=== PATIENT | female | born 1995 | race Caucasian/White ===

== ENCOUNTER 2016-10-16 21:21 | Emergency (ER) | payer OTHER ==
[~2016-10-16] VITALS: Ht 170.2 cm; Wt 85.0 kg
[~2016-10-16 21:21] MED LIST: BCPILLS PO; EPP3/2 IM; MULT-884 PO
[2016-10-16 21:24] VITALS: Ht 170.2 cm; Wt 85.0 kg
[2016-10-16] MEDS ORDERED: ALBUT/IPRATROP 3MG/0.5MG NEB 3 ML VIAL INH STA (22:17)
[2016-10-16 22:46] LABS: BASO % 0.1 %; BASO ABS # 0.01 K/uL (0-0.2); COMPLETE YES; HEMATOCRIT 37.9 % (37-47); IG% 0.1 %; LYMPH % 16.2 %; LYMPH ABS # 1.11 K/uL (1.2-3.4); MEAN CELL VOLUME 84.6 fL (80-100); MEAN CORPUSCULAR HEMOGLOBIN 29.7 pg (25-34); MEAN CORPUSCULAR HGB CONC 35.1 g/dl (32-36); MONO % 9.1 %; NEUT % 74.5 %; PLATELET COUNT 272 K/uL (130-400); RED BLOOD COUNT 4.48 M/uL (4.2-5.4); WHITE BLOOD COUNT 6.85 K/uL (4.8-10.8)
[2016-10-16 23:10] LABS: BUN/CREATININE RATIO 12.3 (10-20); CREATININE 1.2 mg/dl (0.60-1.20); POTASSIUM 3.5 mmol/L (3.5-5.1)
[2016-10-16 23:13] LABS: ALB/GLOB RATIO 0.9 (0.9-2)
[2016-10-16] MEDS ORDERED: SODIUM CHLORIDE 0.9% 1000ML 1,000 ML IV STA (23:51)
[2016-10-16] MEDS ORDERED: ACETAMINOPHEN 500 MG TAB PO STA (23:51)
--- NOTE | 2016-10-17 01:21 | EMERGENCY ROOM VISIT NOTE ---
History First contact with patient: 22:07 Chief Complaint: OTHER COMPLAINT Stated Complaint: CHOKING/SOB History of Present Illness The patient is a 20 year old female who presents to the Emergency Room with complaints of feeling like something is stuck in her throat. The patient states that she was seen here for a food bolus in December of last year. She refused endoscopy at that time. She has been okay since then, but states that recently she has developed a cough and headache. She was seen at [facility] for a fever and cough 2 days ago and prescribed a Z-Paul and steroid. She reports that she was diagnosed with bronchitis and also had a positive strep swab. She feels like something is stuck in her throat and has been gagging occasionally to try to bring this up. She rates her overall discomfort a 10/ 10. She does not smoke. She denies any history of blood clots. She denies any neck pain/stiffness, chest pain or abdominal pain. Review of Systems A complete 10 point review of systems was reviewed with the patient with pertinent positives and negatives as per history of present illness. All else were negative. Past Medical/Surgical History Medical Problems: (1) No pertinent past medical history Family History Patient reports no known family medical history. Social History Smoking Status: Never Smoker Housing Status: lives with roommate Occupation Status: student Current/Historical Medications Scheduled Ethynodiol Diacet & Eth Estrad (Kelnor ), 1 TAB PO DAILY Scheduled PRN Epinephrine (Epipen), 0.3 MG IM UD PRN for ALLERGIC REACTION Physical Exam Vital Signs Date Time Temp Pulse Resp B/P (MAP) Pulse Ox O2 Delivery O2 Flow Rate FiO2 10/17/16 01:30 37.2 100 18 124/68 98 10/17/16 01:05 37.2 100 18 124/68 98 Room Air 10/17/16 01:01 99 20 10/16/16 23:18 118 18 121/64 97 Room Air 10/16/16 21:24 37.6 153 24 146/82 99 Room Air Physical Exam VITALS: Vitals are noted on the nurse's note and reviewed by myself. Vital signs stable. GENERAL: This is a 20-year-old female, in no acute distress, nondiaphoretic, well-developed well-nourished. SKIN: The skin was without rashes. HEAD: Normocephalic atraumatic. EARS: External auditory canals clear, tympanic membranes pearly kendrick without erythema or effusion bilaterally. EYES: Pupils equal round and reactive to light and accommodation. Conjunctivae without injection, sclerae without icterus. NOSE: Patent, turbinates without inflammation or discharge. MOUTH: Mucous membranes moist. Tonsils are mildly enlarged and erythematous bilaterally. No exudate. NECK: Supple without nuchal rigidity. No lymphadenopathy. HEART: Regular rate and rhythm without murmurs gallops or rubs. LUNGS: Clear to auscultation bilaterally without wheezes, rales or rhonchi. ABDOMEN: Soft, nontender to palpation. NEURO: Patient was alert and oriented to person place and time. Medical Decision & Procedures ER Provider Diagnostic Interpretation: CHEST X-RAY: No acute cardiopulmonary abnormalities. SOFT TISSUE NECK: No narrowing of the airway. No foreign bodies identified. Laboratory Results 10/16/16 22:30 Red Blood Count 4.48, Mean Corpuscular Volume 84.6, Mean Corpuscular Hemoglobin 29.7, Mean Corpuscular Hemoglobin Concent 35.1, Mean Platelet Volume 9.0, Neutrophils (%) (Auto) 74.5, Lymphocytes (%) (Auto) 16.2, Monocytes (%) (Auto) 9.1, Eosinophils (%) (Auto) 0.0, Basophils (%) (Auto) 0.1, Neutrophils # (Auto) 5.10, Lymphocytes # (Auto) 1.11, Monocytes # (Auto) 0.62, Eosinophils # (Auto) 0.00, Basophils # (Auto) 0.01 10/16/16 22:30 Test 10/16/16 22:30 White Blood Count 6.85 K/uL (4.8-10.8) Red Blood Count 4.48 M/uL (4.2-5.4) Hemoglobin 13.3 g/dL (12.0-16.0) Hematocrit 37.9 % (37-47) Mean Corpuscular Volume 84.6 fL (80-100) Mean Corpuscular Hemoglobin 29.7 pg (25-34) Mean Corpuscular Hemoglobin Concent 35.1 g/dl (32-36) Platelet Count 272 K/uL (130-400) Mean Platelet Volume 9.0 fL (7.4-10.4) Neutrophils (%) (Auto) 74.5 % Lymphocytes (%) (Auto) 16.2 % Monocytes (%) (Auto) 9.1 % Eosinophils (%) (Auto) 0.0 % Basophils (%) (Auto) 0.1 % Neutrophils # (Auto) 5.10 K/uL (1.4-6.5) Lymphocytes # (Auto) 1.11 K/uL (1.2-3.4) Monocytes # (Auto) 0.62 K/uL (0.11-0.59) Eosinophils # (Auto) 0.00 K/uL (0-0.5) Basophils # (Auto) 0.01 K/uL (0-0.2) RDW Standard Deviation 37.0 fL (36.4-46.3) RDW Coefficient of Variation 12.0 % (11.5-14.5) Immature Granulocyte % (Auto) 0.1 % Immature Granulocyte # (Auto) 0.01 K/uL (0.00-0.02) D-Dimer 380 ug/L FEU (0-500) Anion Gap 11.0 mmol/L (3-11) Est Creatinine Clear Calc Drug Dose 83.1 ml/min Estimated GFR () 74.8 Estimated GFR (Non- 64.6 BUN/Creatinine Ratio 12.3 (10-20) Calcium Level 9.0 mg/dl (8.5-10.1) Total Bilirubin 0.2 mg/dl (0.2-1) Aspartate Amino Transf (AST/SGOT) 20 U/L (15-37) Alanine Aminotransferase (ALT/SGPT) 19 U/L (12-78) Alkaline Phosphatase 62 U/L (45-117) Total Protein 7.5 gm/dl (6.4-8.2) Albumin 3.6 gm/dl (3.4-5.0) Globulin 3.9 gm/dl (2.5-4.0) Albumin/Globulin Ratio 0.9 (0.9-2) Medications Administered Medications (Trade) Dose Ordered Sig/Alla Route Start Time Stop Time Status Last Admin Dose Admin Albuterol/ Ipratropium (Duoneb) 3 ml NOW STAT INH 10/16/16 22:17 10/16/16 22:19 DC 10/16/16 22:17 3 ML Sodium Chloride 1,000 ml @ 999 mls/hr Q1H1M STAT IV 10/16/16 23:51 10/17/16 00:51 DC 10/17/16 00:00 999 MLS/HR Acetaminophen (Tylenol Tab) 1,000 mg NOW STAT PO 10/16/16 23:51 10/16/16 23:52 DC 10/17/16 00:00 1,000 MG ED Course The patient was evaluated as above. Labs were drawn and IV access was obtained. Patient was medicated with a DuoNeb treatment. Patient was given 1 L normal saline solution and 1 g Tylenol. Discharge instructions were reviewed with the patient. The patient verbalized understanding of my assessment and treatment plan and was discharged home in good condition. Medical Decision Differential diagnosis includes strep pharyngitis, pneumonia, acute bronchitis, viral illness, among others. The patient is a 20-year-old female who presents today complaining of cough, sore throat and feeling like something is stuck in her throat. Labs revealed no leukocytosis, anemia or concerning electrolyte abnormalities. Chest x-ray and neck soft tissue x-rays were reviewed by myself and my attending with no acute findings. She did have a low-grade fever. Patient was given a DuoNeb treatment, Tylenol and fluids with some relief. She was initially tachycardic, but heart rate improved significantly after fluids. I do not feel that this is likely secondary to the food bolus that the patient had last year. She was instructed to continue the medications prescribed to her by [facility] and follow-up with [facility] services as needed. Based on the patient's presentation and work up, I feel the patient is stable for outpatient treatment. The patient was educated to return to the emergency department for any worsening of their current condition or new/concerning symptoms. She will follow up with [facility] services. Medication Reconcilliation Current Medication List: was personally reviewed by me Blood Pressure Screening Patient's blood pressure: Normal blood pressure Impression Primary Impression: Acute bronchitis Departure Information Dispostion Home / Self-Care Condition GOOD Referrals [facility] (PCP) Patient Instructions My [facility] Additional Instructions For pain/fever control, you can use the following [id number] medicines ( if >12 yo): - Regular strength (325mg/tab) Tylenol (acetaminophen) 2 tabs every 4-6 hours as needed. Do not exceed 12 tablets in a 24 hour period. Avoid taking more than 4 grams (4000 mg) of Tylenol per day. This includes any other sources of acetaminophen you may take on a regular basis. - Regular strength (200 mg/tab) Advil (ibuprofen) 1-2 tabs every 4-6 hours as needed. Do not exceed a dose of 3200 mg per day. Rest and drink plenty of fluids. Continue your medications as prescribed by [facility]. Follow-up with [facility] this week for further evaluation. Return here for worsening or new/concerning symptoms. Problem Qualifiers Primary Impression: Acute bronchitis
[2016-10-17] MEDS ORDERED: ETHY1TAB PO (01:26)
[2016-10-17 01:30] VITALS: BP 124/68; PULSE 100; TEMP 37.2; O2SAT 98
--- NOTE | 2016-10-17 07:28 | DIAGNOSTIC IMAGING REPORT ---
CHEST 2 VIEWS ROUTINE CLINICAL HISTORY: cough, sob COMPARISON STUDY: No previous studies for comparison. FINDINGS: The heart is normal in size. There is no failure. There are minimal left midlung zone airspace opacities versus artifact from overlying breast tissue attenuation. No pleural effusions are visualized.[ IMPRESSION: Minimal left midlung zone airspace opacities versus artifact from overlying breast tissue. If symptoms persist, repeat radiography is recommended. Electronically signed by: Lopez Cornell M.D. 10/17/2016 7:27 AM Dictated Date/Time: 10/17/2016 7:25 AM
--- NOTE | 2016-10-17 07:29 | DIAGNOSTIC IMAGING REPORT ---
SOFT TISSUE NECK CLINICAL HISTORY: Shortness of breath. Difficulty swallowing. COMPARISON STUDY: No previous studies for comparison. FINDINGS: The retropharyngeal soft tissues appear normal. The epiglottis and aryepiglottic folds appear normal. No radiopaque foreign bodies are visualized. IMPRESSION: No foreign bodies identified on conventional radiographic evaluation. Electronically signed by: Lopez Cornell M.D. 10/17/2016 7:28 AM Dictated Date/Time: 10/17/2016 7:27 AM
== END 2016-10-17 01:31 | disposition home or self-care (01) ==
LOC: C.EDB 21:22 → C.EDC 10-17 01:31
DX: J20.9 Acute bronchitis, unspecified (principal)